=== PATIENT | female | born 1930 | race American Indian/Alaskan Native ===

== ENCOUNTER 2017-03-13 13:16 | Outpatient (CLI) | payer MEDICARE ==
--- NOTE | 2017-03-14 07:43 | Magnetic Resonance Report ---
MRI OF THE BRAIN WITHOUT CONTRAST: HISTORY: Memory loss PROCEDURE: Multiplanar, multisequence MR imaging of the brain without IV contrast was performed. FINDINGS: No comparison at this facility. There is moderate diffuse cortical volume loss. Minimal nonspecific chronic periventricular white matter changes are also identified. The hippocampi demonstrate mild volume loss but no abnormal signal or mass. No evidence for acute ischemia, hemorrhage or mass. No chronic infarct or extra-axial fluid collection. The midline structures are central. The basal cisterns are patent. Normal ventricular size. The orbital cavities and sella turcica demonstrate no abnormality. The visualized paranasal sinuses and mastoid air cells are well aerated. On T2 axial image 12, the flow void corresponding to the terminus of the left ICA is slightly prominent measuring 1.1 cm in diameter. 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 No pedunculated aneurysm appreciated. The remaining flow voids at the [place] are unremarkable. Consider further evaluation with CTA head. IMPRESSION: Mild diffuse cortical volume loss and nonspecific chronic white matter changes which appear appropriate for this persons age. Essentially unremarkable MR brain for age. Slightly prominent terminus of the left ICA, see above.
== END 2017-03-13 13:17 | disposition home or self-care (01) ==
LOC: MRI 13:16
PROVIDERS: ATTEND Psychiatry & Neurology Neurology
DX: R41.3 Other amnesia (principal); G31.89 Other specified degenerative diseases of nervous system; I11.0 Hypertensive heart disease with heart failure; I50.9 Heart failure, unspecified
CPT/HCPCS: 70551

== ENCOUNTER 2018-05-29 02:00 | Inpatient (IN) | payer MEDICARE ==
[2018-05-29 04:46] LABS: Basophils % (Auto) 0.6 % (0.0-1.8); Eosinophils # (Auto) 0.1 K/mm3 (0.0-0.4); Eosinophils % (Auto) 1.2 % (0.0-4.3); Hematocrit 42.6 % (30.3-42.9); Hemoglobin 14.4 gm/dl (10.1-14.3); Lymphocytes # (Auto) 1.8 K/mm3 (1.2-5.4); Lymphocytes % (Auto) 28.9 % (13.4-35.0); Mean Corpuscular HGB Conc 34 % (30-34); Mean Corpuscular Hemoglobin 32 pg (28-32); Mean Corpuscular Volume 94 fl (79-97); Monocytes # (Auto) 0.6 K/mm3 (0.0-0.8); Monocytes % (Auto) 9.6 % (0.0-7.3); Platelet Count 172 K/mm3 (140-440); Red Blood Count 4.54 M/mm3 (3.65-5.03); Red Cell Distribution Width 14.1 % (13.2-15.2)
--- NOTE | 2018-05-29 04:55 | XRay Report ---
FINAL REPORT EXAM: XR CHEST ROUTINE 2V HISTORY: Shortness of breath TECHNIQUE: PA and lateral views of the chest were submitted. FINDINGS: The heart size and vascularity appear normal. The thoracic aorta is mildly tortuous. There scarring in the left lung base. Pleural fluid is not seen. There are no infiltrates. The skeletal structures reveal a dextroscoliosis of the dorsal spine with endplate spurring and osteoporosis. IMPRESSION: Scarring in the left lung base. No acute process in the chest.
[2018-05-29 04:59] LABS: BUN/Creatinine Ratio 17; Blood Urea Nitrogen 15 mg/dL (7-17); Calcium 9.3 mg/dL (8.4-10.2); Hemolysis Index 5
--- NOTE | 2018-05-29 10:44 | Emergency Department Report ---
ED Chest Pain HPI - General Chief Complaint: Dyspnea/Respdistress Stated Complaint: SOB,CHEST PRESSURE Time Seen by Provider: 05/29/18 10:24 Source: patient, old records reviewed (patient admitted in April for chest pain and breath. Had echocardiogram, negative CT chest, and was restarted on Eliquis prior to discharge. Patient had negative stress is which was not repeated during recent hospitalization.) Mode of arrival: Ambulatory Limitations: Physical Limitation - History of Present Illness Initial Comments: 87-year-old female with a history of hypertension, recent diagnosis of breast cancer, obesity, dementia, chronic venous insufficiency and tricuspid regurgitation presents to the hospital assistance of emesis last night. Pain is at the center of the chest and described as a constant burning and pressure- like pain that is moderate in intensity and associated nausea and shortness of breath. No aggravating or alleviating factors voided. Patient is compliant with her medication. She is oriented to self and place but not to year. Severity scale (0 -10): 0 - Related Data Previous Rx's Medication Instructions Recorded Last Taken Type Apixaban [Eliquis] 10 mg PO Q12HR #1 mo 06/02/16 Unknown Rx Acetaminophen [Acetaminophen TAB] 650 mg PO Q4H PRN tablet 04/13/18 Unknown Rx Apixaban [Eliquis] 10 mg PO Q12HR #30 tablet 04/13/18 Unknown Rx Bisoprolol/Hctz [Ziac 10-6.25] 1 each PO QDAY #30 tablet 04/13/18 Unknown Rx Potassium Chloride [K-Dur] 10 meq PO DAILY #30 tablet 04/13/18 Unknown Rx Torsemide [Demadex] 20 mg PO DAILY #30 tablet 04/13/18 Unknown Rx Allergies Allergy/AdvReac Type Severity Reaction Status Date / Time codeine AdvReac Unknown Verified 05/31/16 16:39 morphine AdvReac Nausea Verified 04/12/18 02:03 Heart Score - HEART Score History: Slightly suspicious EKG: Non-specific Age: > 65 Risk factors: 1-2 risk factors Troponin: < normal limit HEART Score: 4 ED Review of Systems ROS: Stated complaint: SOB,CHEST PRESSURE Other details as noted in HPI Comment: All other systems reviewed and negative ED Past Medical Hx - Past Medical History Hx Hypertension: Yes Hx Heart Attack/AMI: No Hx Congestive Heart Failure: Yes Hx Diabetes: No Hx Deep Vein Thrombosis: No Hx Pulmonary Embolism: No Hx Liver Disease: No Hx of Cancer: Yes (Right Breast) Hx Arthritis: Yes Hx Seizures: No Hx Kidney Stones: No Hx Asthma: No Hx COPD: No Hx Tuberculosis: No Hx Dementia: No Hx HIV: No Additional medical history: Tricuspid regurgitation - Surgical History Hx Coronary Stent: No Hx Open Heart Surgery: No Hx Cholecystectomy: No Hx Appendectomy: No - Social History Smoking Status: Never Smoker Substance Use Type: None - Medications Home Medications: Home Medications Medication Instructions Recorded Confirmed Last Taken Type Apixaban [Eliquis] 10 mg PO Q12HR #1 mo 06/02/16 04/12/18 Unknown Rx Acetaminophen [Acetaminophen TAB] 650 mg PO Q4H PRN tablet 04/13/18 Unknown Rx Apixaban [Eliquis] 10 mg PO Q12HR #30 tablet 04/13/18 Unknown Rx Bisoprolol/Hctz [Ziac 10-6.25] 1 each PO QDAY #30 tablet 04/13/18 Unknown Rx Potassium Chloride [K-Dur] 10 meq PO DAILY #30 tablet 04/13/18 Unknown Rx Torsemide [Demadex] 20 mg PO DAILY #30 tablet 04/13/18 Unknown Rx ED Physical Exam - General Limitations: Physical Limitation - Other Other exam information: General: No limitations, patient is alert in no acute distress Head exam: Atraumatic, normocephalic Eyes exam: Normal appearance, pupils equal reactive to light, extraocular movements intact ENT: Moist mucous membrane, normal oropharynx Neck exam: Normal inspection, full range of motion, no meningismus nontender Respiratory exam: Clear to auscultation bilateral, no wheezes, rales, crackles. Anterior chest wall tenderness Cardiovascular: Normal rate and rhythm Abdomen: Soft, nondistended, and nontender, with normal bowel sounds, no rebound, or guarding Extremity: Full range of motion normal inspection no deformity, no leg asymmetry or calf tenderness Back: Normal Inspection, full range of motion, no tenderness Neurologic: Alert, oriented x2, cranial nerves intact, no motor or sensory deficit Psychiatric: normal affect, normal mood Skin: Warm, dry, intact ED Course Vital Signs 05/29/18 05/29/18 05/29/18 04:06 07:59 09:56 Temperature 98 F 97.5 F L Pulse Rate 88 82 Respiratory 18 28 H Rate Blood Pressure 181/97 180/91 O2 Sat by Pulse 98 100 Oximetry 05/29/18 05/29/18 05/29/18 10:00 10:15 10:30 Temperature Pulse Rate 73 70 72 Respiratory 27 H 20 19 Rate Blood Pressure 160/83 159/84 161/87 O2 Sat by Pulse 99 100 99 Oximetry JORDY score - Jordy Score Age > 65: (1) Yes Aspirin use within the Past 7 Days: (0) No 3 or more CAD Risk Factors: (1) Yes 2 or more Angina events in past 24 hrs: (1) Yes Known CAD with more than 50% Stenosis: (0) No Elevated Cardiac Markers: (0) No ST Deviation Greater than 0.5mm: (0) No JORDY Score: 3 ED Medical Decision Making - Lab Data Result diagrams: 05/29/18 04:28 05/29/18 04:28 - EKG Data -: EKG Interpreted by Me (rbb) EKG shows normal: sinus rhythm, axis (qrs -76), QRS complexes (qrs 143), ST-T waves (no stemi) - EKG Data When compared to previous EKG there are: no significant change (04/11/18) - Radiology Data Radiology results: report reviewed FINAL REPORT EXAM: XR CHEST ROUTINE 2V HISTORY: Shortness of breath TECHNIQUE: PA and lateral views of the chest were submitted. FINDINGS: The heart size and vascularity appear normal. The thoracic aorta is mildly tortuous. There scarring in the left lung base. Pleural fluid is not seen. There are no infiltrates. The skeletal structures reveal a dextroscoliosis of the dorsal spine with endplate spurring and osteoporosis. IMPRESSION: Scarring in the left lung base. No acute process in the chest. - Medical Decision Making Chest pain with unchanged EKG and negative troponin 1 Patient is on Eliquis I suspect that pain is musculoskeletal We'll admit for further observation and treatment given age and risk factors - Differential Diagnosis costochondritis, atypical chest pain, PE, PR, unstable angina, dementia Critical Care Time: No Critical care attestation.: If time is entered above; I have spent that time in minutes in the direct care of this critically ill patient, excluding procedure time. ED Disposition Clinical Impression: Chest pain, SOB (shortness of breath), Anticoagulant long-term use, Hx of deep venous thrombosis, HTN (hypertension) Disposition: OP ADMIT IP TO THIS HOSP Is pt being admited?: Yes Condition: Stable Time of Disposition: 10:42 (Dr Ballard/hosp)
[2018-05-29] MEDS ORDERED: TYLENOL PO PRN (11:35)
[2018-05-29] MEDS ORDERED: ZOFRAN IV PRN (11:35)
[2018-05-29] MEDS ORDERED: SODIUM CHLORIDE FLUSH SYRINGE 10 ML IV PRN (11:35)
--- NOTE | 2018-05-29 11:40 | History and Physical Report ---
History of Present Illness Date of examination: 05/29/18 Chief complaint: Chest pain History of present illness: An 79-year-old -[place] man with past medical history significant for hypertension, dementia, breast cancer, obesity, DVT presented to the emergency department with complaints of mid-sternal chest pain. Pain is pressure like, 7 out of 10 in intensity, associated with shortness of breath, no alleviating or aggravating factors identified. Patient also complaining bilateral leg pain. Patient denied fever, cough, chills. Patient has a history of DVT and on Eliquis. Patient has been followed by [facility]. REVIEW OF SYSTEMS: GENERAL: no weight change, no fatigue, no fever HEAD: no head ache EYES: no blurry vision, no acute visual loss EARS: no hearing loss, no discharge, no earache NOSE: no stuffiness, no sneezing, no discharge MOUTH, THROAT AND NECK: no bleeding gums, no sore throat, no swollen neck CARDIAC: As stated in the HPI. RESPIRATORY: +shortness of breath, no wheeze, no cough, no sputum, no hemoptysis , no asthma GI: no decreased appetite, no nausea, no vomiting, no dysphagia, no diarrhea, no constipation, no abdominal pain URINARY: no change in frequency, no urgency, no polyuria, no hematuria, no incontinence MUSCULOSKELETAL: no muscle weakness, no pain, no joint stiffness NEUROLOGIC: no loss of sensation/numbness, no tingling, no tremors, no weakness/ paralysis HEMATOLOGIC: no anemia, no easy bruising SKIN: no rashes ENDOCRINE: no heat/cold intolerance, no polyuria, no polydipsia, no thyroid problems, no diabetes PSYCHIATRIC: no anxiety, no depression, no suicidal ideations Past History Past Medical History: hypertension, other (DVT) Past Surgical History: bowel surgery Social history: full code. denies: smoking, alcohol abuse, prescription drug abuse Family history: no significant family history Medications and Allergies Allergies Allergy/AdvReac Type Severity Reaction Status Date / Time codeine AdvReac Unknown Verified 05/31/16 16:39 morphine AdvReac Nausea Verified 04/12/18 02:03 Home Medications Medication Instructions Recorded Confirmed Last Taken Type Anastrozole [Arimidex] 1 mg PO DAILY 05/29/18 05/29/18 Unknown History Apixaban [Eliquis] 5 mg PO DAILY 05/29/18 05/29/18 Unknown History Aspirin [Adult Aspirin] 81 mg PO DAILY 05/29/18 05/29/18 Unknown History Latanoprost [Xalatan] 2.5 ml OP DAILY 05/29/18 05/29/18 Unknown History hydrALAZINE [Apresoline] 25 mg PO BID 05/29/18 05/29/18 Unknown History Active Meds: Active Medications Acetaminophen (Tylenol) 650 mg PO Q4H PRN PRN Reason: Pain MILD(1-3)/Fever >100.5/[place] Apixaban (Eliquis) 5 mg PO DAILY REPLACED BY [facility]; Protocol Aspirin (Halfprin Ec) 81 mg PO DAILY REPLACED BY [facility] Docusate Sodium (Colace) 100 mg PO BID [facility] Hydralazine HCl (Apresoline) 25 mg PO BID N[facility]OLAY Latanoprost (Latanoprost 0.005%) 50 drops OD DAILY [facility] Ondansetron HCl (Zofran) 4 mg IV Q8H PRN PRN Reason: Nausea And Vomiting Sodium Chloride (Sodium Chloride Flush Syringe 10 Ml) 10 ml IV BID NIK[place]AY Sodium Chloride (Sodium Chloride Flush Syringe 10 Ml) 10 ml IV PRN PRN PRN Reason: LINE FLUSH Exam - Physical Exam Narrative exam: Not in cardiopulmonary distress. The patient appeared well nourished and normally developed. Vital signs as documented. Head exam is unremarkable. No scleral icterus . Neck is without jugular venous distension, thyromegaly, or carotid bruits. Lungs are clear to auscultation. Cardiac exam reveals regular rate and Rhythm. First and second heart sounds normal. No murmurs, rubs or gallops. Abdominal exam reveals normal bowel sounds, no masses, no organomegaly and no aortic enlargement. Extremities are nonedematous and both femoral and pedal pulses are normal. PHOTOGRAPHER STILL: Alert and oriented 3. No focal weakness. - Constitutional Vitals: Temp Pulse Resp BP Pulse Ox 97.5 F L 72 19 161/87 99 05/29/18 07:59 05/29/18 10:30 05/29/18 10:30 05/29/18 10:30 05/29/18 10:30 Results - Labs CBC & Chem 7: 05/29/18 04:28 05/29/18 04:28 Labs: Laboratory Last Values WBC 6.2 K/mm3 (4.5-11.0) 05/29/18 04:28 RBC 4.54 M/mm3 (3.65-5.03) 05/29/18 04:28 Hgb 14.4 gm/dl (10.1-14.3) H 05/29/18 04:28 Hct 42.6 % (30.3-42.9) 05/29/18 04: MCV 94 fl (79-97) 05/29/18 04: MCH 32 pg (28-32) 05/29/18 04: MCHC 34 % (30-34) 05/29/18 04:28 RDW 14.1 % (13.2-15.2) 05/29/18 04:28 Plt Count 172 K/mm3 (140-440) 05/29/18 04: Lymph % (Auto) 28.9 % (13.4-35.0) 05/29/18 04: [place] % (Auto) 9.6 % (0.0-7.3) H 05/29/18 04: Eos % (Auto) 1.2 % (0.0-4.3) 05/29/18 04:28 Baso % (Auto) 0.6 % (0.0-1.8) 05/29/18 04:28 Lymph # 1.8 K/mm3 (1.2-5.4) 05/29/18 04: [place] # 0.6 K/mm3 (0.0-0.8) 05/29/18 04: Eos # 0.1 K/mm3 (0.0-0.4) 05/29/18 04: Baso # 0.0 K/mm3 (0.0-0.1) 05/29/18 04:28 Seg Neutrophils % 59.7 % (40.0-70.0) 05/29/18 04: Seg Neutrophils # 3.7 K/mm3 (1.8-7.7) 05/29/18 04:28 Sodium 141 mmol/L (137-145) 05/29/18 04:28 Potassium 3.7 mmol/L (3.6-5.0) 05/29/18 04:28 Chloride 103.6 mmol/L (98-107) 05/29/18 04:28 Carbon Dioxide 27 mmol/L (22-30) 05/29/18 04:28 Anion Gap 14 mmol/L 05/29/18 04:28 BUN 15 mg/dL (7-17) 05/29/18 04:28 Creatinine 0.9 mg/dL (0.7-1.2) 05/29/18 04:28 Estimated GFR > 60 ml/min 05/29/18 04:28 BUN/Creatinine Ratio 17 % 05/29/18 04:28 Glucose 93 mg/dL (65-100) 05/29/18 04:28 Calcium 9.3 mg/dL (8.4-10.2) 05/29/18 04:28 Troponin T < 0.010 ng/mL (0.00-0.029) 05/29/18 04:28 Assessment and Plan Assessment and plan: 87-year-old female with history of hypertension, breast cancer, DVT presented to the emergency department with complaints of chest pain. Chest pain - Cardiac enzymes are negative, cardiology consulted and will do a stress test tomorrow Uncontrolled hypertension - Patient is on hydralazine 25 mg Twice a day History of DVT - On eliquis Disposition - To telemetry floor Advance Directives: Yes VTE prophylaxis?: Chemical Plan of care discussed with patient/family: Yes
--- NOTE | 2018-05-29 14:32 | Consultation ---
History of Present Illness Consult date: 05/29/18 Requesting physician: CHUY PETE Consult reason: chest pain History of present illness: The patient is an 87 year old female with a past medical history significant for HTN, chronic venous insufficiency, LLE DVT, abdominal surgery in 01/2016 for blockage in colon, ? newly diagnosed breast CA, obesity. She has been seen in our office by Dr. Cabrera. She presented with complaints of chest pain and shortness of breath since 10PM last night. She describes the chest pain as a constant, midsternal pressure and tightness associated with SOB. She also admits to urinary frequency and dysuria. She denies any palpitations, n/v, diaphoresis, dizziness or syncope. Echo done 04/2018 showed 55-60%, mod LVH, LA mildly dilated, mild TR. Lexiscan MPI stress test done 02/2017 was negative for ischemia or scar, EF 70%. Past History Past Medical History: DVT, hypertension, other (CVI) Past Surgical History: Other (abodminal surgery) Social history: denies: smoking, alcohol abuse Medications and Allergies Allergies Allergy/AdvReac Type Severity Reaction Status Date / Time codeine AdvReac Unknown Verified 05/31/16 16:39 morphine AdvReac Nausea Verified 04/12/18 02:03 Home Medications Medication Instructions Recorded Confirmed Last Taken Type Anastrozole [Arimidex] 1 mg PO DAILY 05/29/18 05/29/18 Unknown History Apixaban [Eliquis] 5 mg PO DAILY 05/29/18 05/29/18 Unknown History Aspirin [Adult Aspirin] 81 mg PO DAILY 05/29/18 05/29/18 Unknown History Latanoprost [Xalatan] 2.5 ml OP DAILY 05/29/18 05/29/18 Unknown History hydrALAZINE [Apresoline] 25 mg PO BID 05/29/18 05/29/18 Unknown History Active Meds: Active Medications Acetaminophen (Tylenol) 650 mg PO Q4H PRN PRN Reason: Pain MILD(1-3)/Fever >100.5/[place] Apixaban (Eliquis) 5 mg PO DAILY NIKOLAY; Protocol Aspirin (Halfprin Ec) 81 mg PO DAILY N[facility]AY Docusate Sodium (Colace) 100 mg PO BID N[facility]AY Hydralazine HCl (Apresoline) 25 mg PO BID N[facility]AY Latanoprost (Latanoprost 0.005%) 1 drops OD HS [facility] Ondansetron HCl (Zofran) 4 mg IV Q8H PRN PRN Reason: Nausea And Vomiting Sodium Chloride (Sodium Chloride Flush Syringe 10 Ml) 10 ml IV BID NIKOLAY Sodium Chloride (Sodium Chloride Flush Syringe 10 Ml) 10 ml IV PRN PRN PRN Reason: LINE FLUSH Review of Systems Constitutional: no weight loss, no weight gain, no fever, no chills, no sweats Ears, nose, mouth and throat: no ear pain, no nose pain, no sinus pressure, no sinus pain Cardiovascular: chest pain, shortness of breath, high blood pressure, leg edema , no orthopnea, no palpitations, no rapid/irregular heart beat, no edema, no syncope, no lightheadedness Respiratory: shortness of breath, no cough, no congestion, no wheezing, no pain on inspiration Gastrointestinal: no abdominal pain, no nausea, no vomiting, no diarrhea, no constipation, no change in bowel habits Genitourinary Female: dysuria, urinary frequency, no pelvic pain, no flank pain Musculoskeletal: no neck stiffness, no neck pain Integumentary: no rash, no pruritis, no redness, no sores, no wounds Neurological: no head injury, no paralysis, no weakness, no parathesias, no numbness, no tingling, no seizures, no syncope Psychiatric: no anxiety Endocrine: no cold intolerance, no heat intolerance Hematologic/Lymphatic: no easy bruising, no easy bleeding, no lymphadenopathy Allergic/Immunologic: no urticaria, no wheezing, no persistent infections Physical Examination Vital Signs Temp Pulse Resp BP Pulse Ox 98 F 88 18 181/97 98 05/29/18 04:06 05/29/18 04:06 05/29/18 04:06 05/29/18 04:06 05/29/18 04:06 General appearance: no acute distress HEENT: Positive: PERRL, Normocephaly, Mucus Membranes Moist Neck: Positive: neck supple, trachea midline Cardiac: Positive: Reg Rate and Rhythm, S1/S2 Lungs: Positive: clear to auscultation Neuro: Positive: Grossly Intact Abdomen: Positive: Soft. Negative: Tender Skin: Negative: Rash, Wound Musculoskeletal: No Pain Extremities: Present: +1 Edema (BLE) Results 05/29/18 04:28 05/29/18 04:28 CBC 05/29/18 Range/Units 04:28 WBC 6.2 (4.5-11.0) K/mm3 RBC 4.54 (3.65-5.03) M/mm3 Hgb 14.4 H (10.1-14.3) gm/dl Hct 42.6 (30.3-42.9) % Plt Count 172 (140-440) K/mm3 Lymph # 1.8 (1.2-5.4) K/mm3 [place] # 0.6 (0.0-0.8) K/mm3 Eos # 0.1 (0.0-0.4) K/mm3 Baso # 0.0 (0.0-0.1) K/mm3 Comprehensive Metabolic Panel 05/29/18 Range/Units 04:28 Sodium 141 (137-145) mmol/L Potassium 3.7 (3.6-5.0) mmol/L Chloride 103.6 (98-107) mmol/L Carbon Dioxide 27 (22-30) mmol/L BUN 15 (7-17) mg/dL Creatinine 0.9 (0.7-1.2) mg/dL Glucose 93 (65-100) mg/dL Calcium 9.3 (8.4-10.2) mg/dL - Imaging and Cardiology Echo: report reviewed (04/2018 showed 55-60%, mod LVH, LA mildly dilated, mild TR. ) EKG: report reviewed, image reviewed EKG interpretations - Telemetry EKG Rhythm: Sinus Rhythm - EKG Sinus rhythms and dysrhythmias: sinus rhythm Chamber hypertrophy or enlargement: left ventricular hypertro Repolarization changes or abnormalities: repolarization abn secondary to ventricular hypertrophy Assessment and Plan Optimize anti-hypertensive regimen. Pt was diagnosed with LLE DVT in 05/2016 and was initiated on Eliquis, which was recommended to be continued for at least 6 months. Therefore, will d/c eliquis. Plan for lexiscan MPI stress test in AM. NPO after MN. The patient has been seen in conjunction with Dr. Cabrera who agrees with the assessment and plan of care. - Patient Problems (1) Chest pain Current Visit: Yes Status: Acute (2) SOB (shortness of breath) Current Visit: Yes Status: Acute (3) HTN (hypertension) Current Visit: Yes Status: Chronic (4) Hx of deep venous thrombosis Current Visit: Yes Status: Chronic (5) Chronic venous insufficiency Current Visit: Yes Status: Chronic (6) Dysuria Current Visit: Yes Status: Acute
[2018-05-29] MEDS: COREG PO SCH ×2 (18:04→21:12)
[2018-05-29] MEDS: PROVENTIL IH SCH (20:53)
[2018-05-29] MEDS: APRESOLINE PO SCH (21:15)
[2018-05-29] MEDS: COLACE PO SCH (21:15)
[2018-05-29] MEDS: SODIUM CHLORIDE FLUSH SYRINGE 10 ML IV SCH (21:16)
[2018-05-30 06:27] LABS: Basophils % (Auto) 0.5 % (0.0-1.8); Eosinophils # (Auto) 0.1 K/mm3 (0.0-0.4); Eosinophils % (Auto) 2.5 % (0.0-4.3); Hematocrit 37.4 % (30.3-42.9); Hemoglobin 12.7 gm/dl (10.1-14.3); Lymphocytes # (Auto) 1.4 K/mm3 (1.2-5.4); Lymphocytes % (Auto) 27.9 % (13.4-35.0); Mean Corpuscular HGB Conc 34 % (30-34); Mean Corpuscular Hemoglobin 32 pg (28-32); Mean Corpuscular Volume 94 fl (79-97); Monocytes # (Auto) 0.5 K/mm3 (0.0-0.8); Monocytes % (Auto) 9.2 % (0.0-7.3); Platelet Count 154 K/mm3 (140-440); Red Blood Count 3.99 M/mm3 (3.65-5.03); Red Cell Distribution Width 13.9 % (13.2-15.2)
[2018-05-30 06:43] LABS: BUN/Creatinine Ratio 17; Blood Urea Nitrogen 12 mg/dL (7-17); Calcium 8.1 mg/dL (8.4-10.2); Hemolysis Index 47
[2018-05-30 08:25] LABS: Bacteria,Urine 4+ /HPF (Negative); Bilirubin,Urine NEG (Negative); Blood,Urine NEG (Negative); Color,Urine Yellow (Yellow); Mucus,Urine FEW /HPF; Protein,Urine <15 mg/dL mg/dL (Negative); Urobilinogen,Urine < 2.0 mg/dL (<2.0)
[2018-05-30] MEDS: PROVENTIL IH SCH ×4 (08:50→19:28)
[2018-05-30] MEDS ORDERED: LEXISCAN IV ONE (08:59)
[2018-05-30] MEDS ORDERED: ZOFRAN ONE (09:12)
[2018-05-30] MEDS ORDERED: ELIQUIS PO SCH (10:00)
[2018-05-30] MEDS: SODIUM CHLORIDE FLUSH SYRINGE 10 ML IV SCH ×2 (10:00→21:13)
[2018-05-30] MEDS: COREG PO SCH ×2 (10:49→21:12)
[2018-05-30] MEDS: COLACE PO SCH ×2 (10:49→21:12)
[2018-05-30] MEDS: DEMADEX PO SCH (10:49)
[2018-05-30] MEDS: APRESOLINE PO SCH ×2 (10:50→21:13)
[2018-05-30] MEDS: HALFPRIN EC PO SCH (10:50)
--- NOTE | 2018-05-30 14:30 | Progress Note ---
Assessment and Plan S/p lexiscan MPI stress test this AM which was negative. Pt noted to have paroxysmal atrial fibrillation overnight. Pt denies any prior history of atrial fibrillation. Systemic anticoagulation in regards to AFib recommended. Indications, potential risks and benefits of OAC reviewed with pt and she is agreeable. Initiate Eliquis. Optimize HR. Possible d/c home tomorrow. The patient has been seen in conjunction with Dr. Cabrera who agrees with the assessment and plan of care. - Patient Problems (1) Chest pain Current Visit: Yes Status: Acute (2) SOB (shortness of breath) Current Visit: Yes Status: Acute (3) Paroxysmal atrial fibrillation Current Visit: Yes Status: Acute (4) HTN (hypertension) Current Visit: Yes Status: Chronic (5) Hx of deep venous thrombosis Current Visit: Yes Status: Chronic (6) Chronic venous insufficiency Current Visit: Yes Status: Chronic (7) Dysuria Current Visit: Yes Status: Acute Subjective Date of service: 05/30/18 Principal diagnosis: cp; SOB Interval history: pt s/p stress test this AM. states chest pain has resolved. tele reviewed - pt noted to have paroxysmal atrial fibrillation overnight. Objective Last Vital Signs Temp 97.5 F L 05/30/18 13:11 Pulse 79 05/30/18 13:11 Resp 18 05/30/18 13:11 BP 108/69 05/30/18 13:11 Pulse Ox 96 05/30/18 13:11 - Physical Examination General: No Apparent Distress HEENT: Positive: PERRL, Normocephaly, Mucus Membranes Moist Neck: Positive: neck supple, trachea midline Cardiac: Positive: Reg Rate and Rhythm, S1/S2 Lungs: Positive: clear to auscultation Neuro: Positive: Grossly Intact Abdomen: Positive: Soft. Negative: Tender Skin: Negative: Rash, Wound Musculoskeletal: No Pain Extremities: Present: +1 Edema (BLE) - Labs and Meds CBC 05/30/18 Range/Units 06:00 WBC 5.0 (4.5-11.0) K/mm3 RBC 3.99 (3.65-5.03) M/mm3 Hgb 12.7 (10.1-14.3) gm/dl Hct 37.4 (30.3-42.9) % Plt Count 154 (140-440) K/mm3 Lymph # 1.4 (1.2-5.4) K/mm3 [place] # 0.5 (0.0-0.8) K/mm3 Eos # 0.1 (0.0-0.4) K/mm3 Baso # 0.0 (0.0-0.1) K/mm3 Comprehensive Metabolic Panel 05/30/18 Range/Units 06:00 Sodium 144 (137-145) mmol/L Potassium 4.0 (3.6-5.0) mmol/L Chloride 110.5 H (98-107) mmol/L Carbon Dioxide 23 (22-30) mmol/L BUN 12 (7-17) mg/dL Creatinine 0.7 (0.7-1.2) mg/dL Glucose 80 (65-100) mg/dL Calcium 8.1 L (8.4-10.2) mg/dL - Imaging and Cardiology EKG: report reviewed, image reviewed Echo: report reviewed (04/2018 showed 55-60%, mod LVH, LA mildly dilated, mild TR. ) - EKG Sinus rhythms and dysrhythmias: sinus rhythm Chamber hypertrophy or enlargement: left ventricular hypertro Repolarization changes or abnormalities: repolarization abn secondary to ventricular hypertrophy
--- NOTE | 2018-05-30 15:30 | Progress Note ---
Assessment and Plan Assessment and plan: 87-year-old female with history of hypertension, breast cancer, DVT presented to the emergency department with complaints of chest pain. Chest pain - Cardiac enzymes are negative, cardiology consulted -Stress test was negative Paroxysmal A. fib - Patient is on carvedilol and eliquis Uncontrolled hypertension - Patient is on hydralazine 25 mg Twice a day History of DVT - On eliquis Disposition -Continue inpatient care, possible discharge tomorrow History Interval history: Patient was seen in neurology this morning, patient's shortness of breath is getting better. Hospitalist Physical - Physical exam Narrative exam: Not in cardiopulmonary distress. The patient appeared well nourished and normally developed. Vital signs as documented. Head exam is unremarkable. No scleral icterus . Neck is without jugular venous distension, thyromegaly, or carotid bruits. Lungs are clear to auscultation. Cardiac exam reveals irregular rate and Rhythm. Abdominal exam reveals normal bowel sounds, no masses, no organomegaly and no aortic enlargement. Extremities are nonedematous and both femoral and pedal pulses are normal. 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 No focal weakness. - Constitutional Vitals: Temp Pulse Resp BP Pulse Ox 97.5 F L 79 18 108/69 96 05/30/18 13:11 05/30/18 13:11 05/30/18 13:11 05/30/18 13:11 05/30/18 13:11 General appearance: Present: no acute distress Results - Labs CBC & Chem 7: 05/30/18 06:00 05/30/18 06:00 Labs: Laboratory Last Values WBC 5.0 K/mm3 (4.5-11.0) 05/30/18 06:00 RBC 3.99 M/mm3 (3.65-5.03) 05/30/18 06:00 Hgb 12.7 gm/dl (10.1-14.3) 05/30/18 06:00 Hct 37.4 % (30.3-42.9) 05/30/18 06:00 MCV 94 fl (79-97) 05/30/18 06:00 MCH 32 pg (28-32) 05/30/18 06:00 MCHC 34 % (30-34) 05/30/18 06:00 RDW 13.9 % (13.2-15.2) 05/30/18 06:00 Plt Count 154 K/mm3 (140-440) 05/30/18 06:00 Lymph % (Auto) 27.9 % (13.4-35.0) 05/30/18 06:00 Williamson % (Auto) 9.2 % (0.0-7.3) H 05/30/18 06:00 Eos % (Auto) 2.5 % (0.0-4.3) 05/30/18 06:00 Baso % (Auto) 0.5 % (0.0-1.8) 05/30/18 06:00 Lymph # 1.4 K/mm3 (1.2-5.4) 05/30/18 06:00 Williamson # 0.5 K/mm3 (0.0-0.8) 05/30/18 06:00 Eos # 0.1 K/mm3 (0.0-0.4) 05/30/18 06:00 Baso # 0.0 K/mm3 (0.0-0.1) 05/30/18 06:00 Seg Neutrophils % 59.9 % (40.0-70.0) 05/30/18 06:00 Seg Neutrophils # 3.0 K/mm3 (1.8-7.7) 05/30/18 06:00 Sodium 144 mmol/L (137-145) 05/30/18 06:00 Potassium 4.0 mmol/L (3.6-5.0) 05/30/18 06:00 Chloride 110.5 mmol/L (98-107) H 05/30/18 06:00 Carbon Dioxide 23 mmol/L (22-30) 05/30/18 06:00 Anion Gap 15 mmol/L 05/30/18 06:00 BUN 12 mg/dL (7-17) 05/30/18 06:00 Creatinine 0.7 mg/dL (0.7-1.2) 05/30/18 06:00 Estimated GFR > 60 ml/min 05/30/18 06:00 BUN/Creatinine Ratio 17 % 05/30/18 06:00 Glucose 80 mg/dL (65-100) 05/30/18 06:00 Calcium 8.1 mg/dL (8.4-10.2) L 05/30/18 06:00 Troponin T < 0.010 ng/mL (0.00-0.029) 05/29/18 04:28 Urine Color Yellow (Yellow) 05/29/18 06:00 Urine Turbidity Clear (Clear) 05/29/18 06:00 Urine pH 7.0 (5.0-7.0) 05/29/18 06:00 Ur Specific Carson 1.006 (1.003-1.030) 05/29/18 06:00 Urine Protein <15 mg/dl mg/dL (Negative) 05/29/18 06:00 Urine Glucose (UA) Neg mg/dL (Negative) 05/29/18 06:00 Urine Ketones Neg mg/dL (Negative) 05/29/18 06:00 Urine Blood Neg (Negative) 05/29/18 06:00 Urine Nitrite Neg (Negative) 05/29/18 06:00 Urine Bilirubin Neg (Negative) 05/29/18 06:00 Urine Urobilinogen < 2.0 mg/dL (<2.0) 05/29/18 06:00 Ur Leukocyte Esterase Tr (Negative) 05/29/18 06:00 Urine WBC (Auto) 1.0 /HPF (0.0-6.0) 05/29/18 06:00 Urine RBC (Auto) 1.0 /HPF (0.0-6.0) 05/29/18 06:00 U Epithel Cells (Auto) 1.0 /HPF (0-13.0) 05/29/18 06:00 Urine Bacteria (Auto) 4+ /HPF (Negative) 05/29/18 06:00 Urine Mucus Few /HPF 05/29/18 06:00
[2018-05-30] MEDS: ELIQUIS PO SCH (21:12)
[2018-05-30] MEDS ORDERED: LATANOPROST 0.005% OD SCH (22:00)
--- NOTE | 2018-05-30 23:25 | Treadmill Report ---
NUCLEAR PERFUSION STUDY REASON FOR STUDY: Chest pain. IMAGING PROTOCOL: Single isotope used. The patient received 10 mCi of Technetium 99m Tetrofosmin for resting image and 28 mCi of Technetium 99m Tetrofosmin for stress imaging. The imaging for the whole procedure was completed 30-90 minutes following the initial injection of Technetium 99m Tetrofosmin. The SPECT imaging in the 180 degree arc was performed in the right anterior oblique projection. Computerized reconstruction of the images was performed for analysis. IMAGING RESULTS: Normal cavity size from stress to rest. Normal distribution of radionuclide in the anterior, inferior, septal, and apical regions. Gated SPECT, EF 64% with no wall motion abnormality. The patient infused Lexiscan with no EKG changes. SUMMARY: 1. Negative Lexiscan EKG. 2. Normal rest and stress myocardial perfusion scan. No significant stress ischemia. No wall motion abnormality. Gated SPECT, EF 64%. 1. JOB# [id number] BREE/MARYELLEN
[2018-05-31 07:56] VITALS: BP 141/67
[2018-05-31] MEDS: PROVENTIL IH SCH (08:21)
[2018-05-31] MEDS: SODIUM CHLORIDE FLUSH SYRINGE 10 ML IV SCH (09:36)
[2018-05-31] MEDS: DEMADEX PO SCH (09:36)
[2018-05-31] MEDS: COLACE PO SCH (09:36)
[2018-05-31] MEDS: ELIQUIS PO SCH (09:36)
[2018-05-31] MEDS: APRESOLINE PO SCH (09:36)
[2018-05-31] MEDS: HALFPRIN EC PO SCH (09:36)
[2018-05-31] MEDS: COREG PO SCH (09:36)
--- NOTE | 2018-05-31 09:53 | Discharge Summary ---
Providers - Providers Date of Admission: 05/29/18 11:35 Attending physician: CHUY PETE MD 05/29/18 11:35 Consult to Physician [CONS] Routine Comment: Consulting Provider: BERTIN CABRERA Physician Instructions: Reason For Exam: chest pain 05/29/18 16:30 Physical Therapy Evaluation and Treat [CONS] Routine Comment: Reason For Exam: deconditioning Primary care physician: VIVIEN MAGAÑA Hospitalization Reason for admission: Chest pain, paroxysmal a.fib Condition: Stable Pertinent studies: Cardiac stress test negative for active ischemia Hospital course: An 79-year-old -[place] man with past medical history significant for hypertension, dementia, breast cancer, obesity, DVT presented to the emergency department with complaints of mid-sternal chest pain. Pain is pressure like, 7 out of 10 in intensity, associated with shortness of breath, no alleviating or aggravating factors identified. Patient also complaining bilateral leg pain. Patient denied fever, cough, chills. Patient has a history of DVT and on Eliquis. Patient has been followed by [facility]. Patient was admitted to the floor, stress test was done and negative for ischemia. Patient showed paroxysmal A. fib and advised to continue Eliquis. Patient's shortness of breath resolved. Patient was hemodynamically stable and discharged home. Appropriate medication scripts were given. Patient's questions and concerns were addressed bedside. Disposition: DC-01 TO HOME OR SELFCARE Time spent for discharge: 32 minutes - Discharge Diagnoses (1) Anticoagulant long-term use Status: Chronic (2) Chest pain Status: Resolved (3) Paroxysmal atrial fibrillation Status: Acute (4) SOB (shortness of breath) Status: Resolved (5) Chronic venous insufficiency Status: Chronic (6) HTN (hypertension) Status: Chronic (7) Hx of deep venous thrombosis Status: Chronic Core Measure Documentation - Palliative Care Palliative Care/ Comfort Measures: Not Applicable - Core Measures Any of the following diagnoses?: none Exam - Physical Exam Narrative exam: Not in cardiopulmonary distress. The patient appeared well nourished and normally developed. Vital signs as documented. Head exam is unremarkable. No scleral icterus . Neck is without jugular venous distension, thyromegaly, or carotid bruits. Lungs are clear to auscultation. Cardiac exam reveals irregular rate and Rhythm. Abdominal exam reveals normal bowel sounds, no masses, no organomegaly and no aortic enlargement. Extremities are nonedematous and both femoral and pedal pulses are normal. 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 No focal weakness. - Constitutional Vitals: Temp Pulse Resp BP Pulse Ox 97.8 F 62 18 141/67 92 05/31/18 07:53 05/31/18 09:36 05/31/18 08:31 05/31/18 09:36 05/31/18 07:53 Plan Activity: no restrictions Weight Bearing Status: Full Weight Bearing Diet: low salt Follow up with: BERTIN CABRERA MD [Staff Physician] - 7 Days (Follow up in our [place] office with Dr. Cabrera on 06/12/2018 @ 2:15PM.) VIVIEN MAGAÑA NP-C [Primary Care Provider] - 7 Days Prescriptions: Apixaban [Eliquis] 5 mg PO BID #60 tablet Carvedilol [Coreg] 6.25 mg PO BID #60 tablet Torsemide [Demadex] 20 mg PO DAILY #30 tablet ALBUTEROL NEB's [Proventil 0.083% NEBS] 2.5 mg IH QIDRT #60 nebu
--- NOTE | 2018-05-31 11:25 | Progress Note ---
Assessment and Plan Currently stable cardiac status. Pt may discharge home from cardiology standpoint on current cardiac regimen. Follow up in our [place] office with Dr. Cabrera on 06/12/2018 @ 2:15PM. The patient has been seen in conjunction with Dr. Cabrera who agrees with the assessment and plan of care. - Patient Problems (1) Chest pain Current Visit: Yes Status: Resolved (2) SOB (shortness of breath) Current Visit: Yes Status: Resolved (3) Paroxysmal atrial fibrillation Current Visit: Yes Status: Acute (4) HTN (hypertension) Current Visit: Yes Status: Chronic (5) Hx of deep venous thrombosis Current Visit: Yes Status: Chronic (6) Chronic venous insufficiency Current Visit: Yes Status: Chronic (7) Dysuria Current Visit: Yes Status: Acute Subjective Date of service: 05/31/18 Principal diagnosis: cp; SOB Interval history: Pt resting comfortably in bed, no current cardiac complaints. tele reviewed - pt in SR overnight. Objective Last Vital Signs Temp 97.8 F 05/31/18 07:53 Pulse 62 05/31/18 09:36 Resp 18 05/31/18 08:31 BP 141/67 05/31/18 09:36 Pulse Ox 92 05/31/18 07:53 - Physical Examination General: No Apparent Distress HEENT: Positive: PERRL, Normocephaly, Mucus Membranes Moist Neck: Positive: neck supple, trachea midline Cardiac: Positive: Reg Rate and Rhythm, S1/S2 Lungs: Positive: clear to auscultation Neuro: Positive: Grossly Intact Abdomen: Positive: Soft. Negative: Tender Skin: Negative: Rash, Wound Musculoskeletal: No Pain Extremities: Present: +1 Edema (BLE) - Imaging and Cardiology EKG: report reviewed, image reviewed Echo: report reviewed (04/2018 showed 55-60%, mod LVH, LA mildly dilated, mild TR. ) - Telemetry EKG Rhythm: Sinus Rhythm - EKG Sinus rhythms and dysrhythmias: sinus rhythm Chamber hypertrophy or enlargement: left ventricular hypertro Repolarization changes or abnormalities: repolarization abn secondary to ventricular hypertrophy
[2018-05-31] MEDS ORDERED: PROVENTIL IH SCH (12:15)
--- NOTE | 2018-05-31 15:12 | Query- Chest Pain ---
Cheng Goel Yocasta Date:__05/31/2018 Trina/CDS:___Anisha Phone#:__[phone] Exercise your independent professional judgment when responding to query. Questions asked do not imply a particular answer is desired or expected. We greatly appreciate your clarification on this issue. Clinical Documentation States: An 79-year-old -[place] man with complaints of mid-sternal chest pain. Pain is pressure like, 7 out of 10 in intensity, associated with shortness of breath, no alleviating or aggravating factors identified. Patient also complaining bilateral leg pain. Discharge summary stated "(2) Chest pain Status: Acute." Please document the etiology of Chest Pain: [ ] Myocardial Infarction [ ] Pneumonia [ ] Mediastinitis [ x] Costochondritis [ ] Pulmonary Embolism [ ] Coronary Artery Disease [ ] GERD [ ] Other: [ ] Comment/Explanation: Present on Admission: [ x] Yes (Y) [ ] Clinically undeterminable (W) [ ] No(N) Please document response in your Progress Notes and/or Discharge Summary and indicate if the condition was present on admission. BRYAN
== END 2018-05-31 12:10 | disposition home health service (06) | DRG 206 ==
LOC: ED 02:00 → 4A 11:35
PROVIDERS: ADMIT Internal Medicine; ATTEND Internal Medicine
DX: M94.0 Chondrocostal junction syndrome [Tietze] (principal); I48.0 Paroxysmal atrial fibrillation; F03.90 Unspecified dementia, unspecified severity, without behavioral disturbance, psychotic disturbance, mood disturbance, and anxiety; E66.9 Obesity, unspecified; I87.2 Venous insufficiency (chronic) (peripheral); I11.0 Hypertensive heart disease with heart failure; I50.9 Heart failure, unspecified; M19.90 Unspecified osteoarthritis, unspecified site; C50.911 Malignant neoplasm of unspecified site of right female breast; Z86.718 Personal history of other venous thrombosis and embolism; Z68.30 Body mass index [BMI] 30.0-30.9, adult; Z88.5 Allergy status to narcotic agent; Z79.899 Other long term (current) drug therapy; Z79.82 Long term (current) use of aspirin; Z79.01 Long term (current) use of anticoagulants
CPT/HCPCS: 36415; 71046; 78452; 80048; 81001; 84484; 85025; 93005; 93010; 93017; 94640; 96374; A9502; G8978-GP; G8979-GP; G8980-GP; J2405; J2785